=== PATIENT | male | born 1975 | race Caucasian/White ===

== ENCOUNTER 2019-05-31 16:02 | Emergency (ER) | payer MEDICAID ==
[~2019-05-31] VITALS: Ht 182.9 cm; Wt 86.2 kg
--- NOTE | 2019-05-31 16:29 | NUR ---
PT STATES AT 2100 LAST NIGHT BEGINNING SXS OF FACIAL NUMBNESS, METALLIC TASTE IN MOUTH AND FACIAL DROOP, STATES HE THINKS SXS ARE WORSENING. PT PLACED ON MONITOR. MD TO BEDSIDE FOR [place]
[2019-05-31 17:30] VITALS: BP 123/76
== END 2019-05-31 17:32 | disposition home or self-care (01) ==
LOC: ED 17:15
DX: G51.0 Bell's palsy (principal); R05 Cough; R09.81 Nasal congestion
CPT/HCPCS: 93005; 99283

== ENCOUNTER 2019-08-17 10:44 | Emergency (ER) | payer SELFPAY ==
[~2019-08-17] VITALS: Ht 182.9 cm; Wt 87.2 kg
[2019-08-17 10:53] VITALS: BP 128/90
--- NOTE | 2019-08-17 11:19 | NUR ---
Patient/Caregiver given discharge instructions and they have confirmed that they understand the instructions. Patient ambulatory with steady gait. Pt verbalizes understanding that even though he is feeling better, he should stay home and self issolate.
== END 2019-08-17 11:20 | disposition home or self-care (01) ==
LOC: ED 11:15
DX: B34.9 Viral infection, unspecified (principal)
CPT/HCPCS: 99282